=== PATIENT | male | born 1960 | race Caucasian/White ===

== ENCOUNTER 2016-11-20 12:14 | Emergency (ER) | payer MEDICARE, OTHER ==
[~2016-11-20] VITALS: Ht 182.9 cm; Wt 122.0 kg
--- NOTE | ~2016-11-20 | US135 ---
[facility] A Service of [facility] RADIOLOGY TEXT RESULTS PATIENT: EDENILSON CARPIO JR LOCATION: [place] : [birth year] UNIT #: [id number] AGE: [address]: Myla Lockwood SEX: M ORDER DR: [id number] [facility] [address] [place], [place] [address] [id number] E MR#: [id number] Acc #: [id number] NAME: EDENILSON CARPIO JR : 1960 SEX: M STUDY DATE/TIME: 11/20/2016 14:58 UNIT: CFTX ROOM: STUDY DESCRIPTION: US U/L Ext Art Study Comp Dominik Attending Physician: Myla Lockwood Pa-C Ordering Physician: Avinash Issa M.D. Primary Care Physician: Stanley Monzon A.P.R.N. MEDICAL IMAGING REPORT This report is preliminary unless electronic signature is present EXAM Ankle-brachial indices HISTORY Bilateral leg pain. FINDINGS Bilateral lower extremity pulses volume recordings are normal at the toes. Doppler velocity waveforms are triphasic at the posterior tibial and dorsalis pedis bilaterally. Right brachial pressure is 141, left brachial pressure is 129. On the right side high thigh pressure is 195, low thigh 134, calf pressure 134, posterior tibial 133, dorsalis pedis 98, great toe is 101 for a right ankle-brachial index of 0.94. On the left side high thigh pressure is 186, low thigh is 170, calf pressure 158, posterior tibial 147, dorsalis pedis 137, great toe 128 for a left MARICRUZ of 1.04. IMPRESSION Normal perfusion is seen in the lower extremities bilaterally with MARICRUZ of 0.94 on the right and 1.04 on the left. Dictated by... Avinash Issa M.D. SA/jame TD: 11/22/2016 03:05 JOB #: [id number] [facility] A Service of [facility] RADIOLOGY TEXT RESULTS PATIENT: EDENILSON CARPIO JR LOCATION: [facility] #: [id number] : [birth year] UNIT #: [id number] AGE: [address]: Myla Lockwood SEX: M ORDER DR: MEDICAL IMAGING REPORT Page 1 of 1
--- NOTE | ~2016-11-20 | US84 ---
[id number] [facility] [address] [place], [place] [address] [id number] E MR#: [id number] Acc #: [id number] NAME: EDENILSON CARPIO JR : 1960 SEX: M STUDY DATE/TIME: 11/20/2016 13:35 UNIT: CFTX ROOM: STUDY DESCRIPTION: US LE Veins Complete Dominik Stdy Attending Physician: Myla Lockwood Pa-C Ordering Physician: Ed Doc Cheri Fried Primary Care Physician: Stanley Monzon A.P.R.N. MEDICAL IMAGING REPORT This report is preliminary unless electronic signature is present EXAM Bilateral lower extremity venous Doppler. HISTORY Bilateral leg pain for 3 months. TECHNIQUE Venous ultrasound examination of both lower extremities was performed using grayscale, spectral Doppler and color flow Doppler imaging. FINDINGS The examination is negative. There is no evidence of deep venous thrombus from the groin to the lower calf bilaterally. Visualized greater saphenous veins are also patent. IMPRESSION Negative examination. No evidence of lower extremity deep venous thrombosis. Dictated by... Jose Alberto Luu M.D. THIS IS AN ELECTRONICALLY VERIFIED REPORT Jose Alberto Luu M.D. at 11/21/2016 10:03 AM KEITH/chitra TD: 11/21/2016 09:05 JOB #: [id number] MEDICAL IMAGING REPORT Page 1 of 1 COPY
[2016-11-20 13:40] LABS: BASOPHIL# 0.1 X10e3 (0-0.3); BASOPHIL% 1.4 % (0-2.5); EOSINOPHIL# 0.3 X10e3 (0-0.7); EOSINOPHIL% 3.8 % (0.0-7.0); HEMATOCRIT 41.9 % (38.0-50.0); HEMOGLOBIN 14.5 gm/dL (13.0-16.0); LYMPHOCYTE# 2.5 X10e3 (1.0-3.5); LYMPHOCYTE% 32.6 % (17.0-45.0); MEAN CELL VOLUME 90.5 FL (83-96); MEAN CORPUSCULAR HEMOGLOBIN 31.2 PG (28-34); MEAN CORPUSCULAR HGB CONC 34.5 g/dL (30-36); MEAN PLATELET VOLUME 9.1 FL (6.5-11.5); MONOCYTE# 0.7 X10e3 (0-1.0); NEUTROPHIL# 4.1 X10e3 (1.5-7.1); NEUTROPHIL% 53.2 % (40-75); PLATELET COUNT 107 X10e3 (140-420); RED BLOOD COUNT 4.63 X10e (3.90-5.60); RED CELL DISTRIBUTION WIDTH 14.7 % (11.0-15.5); WHITE BLOOD COUNT 7.6 X10e3 (4.0-10.5)
[2016-11-20 13:43] LABS: DIFF IND NO
[2016-11-20 13:58] LABS: ALBUMIN SERUM 3.9 g/dL (3.5-5.0); BILIRUBIN,TOTAL 0.6 mg/dL (0.2-2.0); BUN/CREATININE RATIO 13.63; CALCIUM SERUM 9.2 mg/dL (8.4-10.2); CREATININE SERUM 1.1 mg/dL (0.6-1.4); GLOM FILT RATE Estimated 76.3 mL/min (>60); POTASSIUM 3.4 mmol/L (3.5-5.1); PROTEIN TOTAL SERUM 7.5 g/dL (6.0-8.3)
== END 2016-11-20 17:06 | disposition home or self-care (01) ==
LOC: CFTX 12:14 → CED 12:14 → CFTX 13:23
PROVIDERS: Physician Assistant
DX: I73.9 Peripheral vascular disease, unspecified (principal); I25.2 Old myocardial infarction; I10 Essential (primary) hypertension; E11.9 Type 2 diabetes mellitus without complications; J44.9 Chronic obstructive pulmonary disease, unspecified; Z86.73 Personal history of transient ischemic attack (TIA), and cerebral infarction without residual deficits; Z98.890 Other specified postprocedural states; F17.200 Nicotine dependence, unspecified, uncomplicated; Z88.0 Allergy status to penicillin
CPT/HCPCS: 36415; 80053; 85025; 93923; 93970; 99284